=== PATIENT | female | born 1960 | race Two or more races ===

== ENCOUNTER 2017-01-25 16:39 | Observation (INO) | payer MEDICAID ==
[2017-01-25] MEDS ORDERED: CATAPRES TAB 0.1 MG PO PRN (18:40)
[2017-01-25] MEDS ORDERED: APRESOLINE INJ 20 MG VIAL IVP PRN (18:41)
[2017-01-25 19:54] LABS: AMYLASE 95 Units/L (25-115); LIPASE 160 Units/L (73-393)
[2017-01-25 19:59] LABS: ALANINE AMINOTRANSFERASE 23 Units/L (12-78); ALBUMIN 3.6 g/dL (3.4-5.0); ALKALINE PHOSPHATASE 96 Units/L (46-116); ASPARTATE AMINO TRANSFERASE 28 Units/L (15-37); BLOOD UREA NITROGEN 20 mg/dL (7-18); CALCIUM 9.2 mg/dL (8.5-10.1); CARBON DIOXIDE 29.9 mmol/L (21-32); CHLORIDE 107 mmol/L (98-107); COR NA(FOR HYPERGLY) 144 mmol/L (136-145); CREATININE 1.03 mg/dL (0.55-1.02); GLUCOSE 117 mg/dL (65-99); SODIUM 144 mmol/L (136-145); TOTAL PROTEIN 7.4 g/dL (6.4-8.2); eGFR BLACK RACES > 60 (>60); eGFR NON BLACK RACES 59 (>60)
[2017-01-25 20:27] VITALS: BMI 26.6
[2017-01-25] MEDS: ZOSYN VIAL 4.5 GM 4.5 GM in NS 100 ML IV + SPIKE MINIBAG* 100 ML IV SCH (21:39)
[2017-01-25] MEDS: NS 500 ML IV 500 ML IV SCH (21:39)
[2017-01-25] MEDS: LEVAQUIN PREMIX IV 500 MG 500 MG/100 ML BAG IV SCH (21:40)
[2017-01-25] MEDS: NS 100 ML IV 100 ML IV ONE ×2 (21:40→21:41)
--- NOTE | 2017-01-25 22:39 | RAD ---
Chest PA and lateral Indication: Hypertension. Findings: There is cardiomegaly with sternotomy change. There is no pneumothorax or effusion. Lungs are mildly hyperinflated. Impression: Cardiomegaly is COPD without other acute abnormality. No overt edema. Reported By:
--- NOTE | 2017-01-26 03:36 | CT ---
CT abdomen and pelvis with contrast Indication: Diverticulitis Technique: Helical images through the abdomen and pelvis after IV contrast and oral contrast. Alvarado l and sagittal reformats provided. Comparison: No similar studies available. Findings: Limited images through the lung base show chronic lung changes and cardiomegaly. Review of bone windows shows no destructive osseous lesion. Mild facet arthropathy and SI joint DJD noted. Abdomen: Reflux of contrast seen into the hepatic veins. The gallbladder is absent. The liver and sp alexander appear relatively normal. The pancreas and adrenal glands are normal. The stomach and small bow el are normal without obstruction to the flow of contrast which reaches the colon normally. The appe ndix is normal. The colon is normal. Minimal vascular plaque noted. The kidneys are normal without h ydronephrosis. Pelvis: The urinary bladder rectum are normal. Uterus and adnexa are normal. Impression: 1. Cardiomegaly with evidence of cardiac dysfunction reflux of contrast into the hepatic veins. Cons ider echocardiography, followup. 2. Aortic plaque and other incidental findings as above, without other acute abnormality in the abdo men or pelvis. Reported By:
[2017-01-26] MEDS: ZOSYN VIAL 4.5 GM 4.5 GM in NS 100 ML IV + SPIKE MINIBAG* 100 ML IV SCH ×3 (06:16→21:31)
[2017-01-26 06:38] LABS: BASOPHILS # (AUTO) 0.1 X10^3/uL (0.0-0.1); BASOPHILS % (AUTO) 0.8 % (0.2-1.0); EOSINOPHILS # (AUTO) 0.1 x10^3/uL (0.0-0.2); EOSINOPHILS % (AUTO) 1.9 % (0.9-2.9); HEMATOCRIT 45.4 % (36.0-47.0); HEMOGLOBIN 14.9 g/dL (12.0-16.0); LYMPHOCYTES # (AUTO) 2.8 X10^3/uL (1.3-2.9); LYMPHOCYTES % (AUTO) 42.4 % (21.0-51.0); MEAN CORPUSCULAR HEMOGLOBIN 28.4 pg (27.0-34.0); MEAN CORPUSCULAR HGB CONC 32.7 g/dL (33.0-35.0); MEAN CORPUSCULAR VOLUME 86.8 fL (80.0-100.0); MEAN PLATELET VOLUME 9.1 fL (7.4-11.0); MONOCYTES # (AUTO) 0.7 x10^3/uL (0.3-0.8); MONOCYTES % (AUTO) 11.2 % (0.0-13.0); NEUTROPHILS # (AUTO) 2.9 x10^3/uL (2.2-4.8); NEUTROPHILS % (AUTO) 43.7 % (42.0-75.0); PLATELET COUNT 186 X10^3/uL (150.0-450.0); RED BLOOD COUNT 5.23 X10^6/uL (3.5-5.4); RED CELL DISTRIBUTION WIDTH 14.1 % (11.6-16.5); WHITE BLOOD COUNT 6.7 X10^3/uL (3.6-10.0)
[2017-01-26 06:40] LABS: ALANINE AMINOTRANSFERASE 22 Units/L (12-78); ALBUMIN 3.3 g/dL (3.4-5.0); ALKALINE PHOSPHATASE 91 Units/L (46-116); ASPARTATE AMINO TRANSFERASE 21 Units/L (15-37); BLOOD UREA NITROGEN 16 mg/dL (7-18); CALCIUM 9.3 mg/dL (8.5-10.1); CARBON DIOXIDE 24.8 mmol/L (21-32); CHLORIDE 107 mmol/L (98-107); COR CA(FOR HYPOALB) 9.9 mg/dL (8.5-10.1); CREATININE 1.02 mg/dL (0.55-1.02); GLUCOSE 92 mg/dL (65-99); SODIUM 142 mmol/L (136-145); TOTAL PROTEIN 7.1 g/dL (6.4-8.2); eGFR BLACK RACES > 60 (>60); eGFR NON BLACK RACES 60 (>60)
[2017-01-26] MEDS: LEVAQUIN PREMIX IV 500 MG 500 MG/100 ML BAG IV SCH (09:11)
--- NOTE | 2017-01-26 13:12 | DR.H&P ---
H&P - History & Physical for Day of: H&P Date: 01/25/17 - Chief Complaint Chief Complaint: HIGH BP, ABDOMINAL PAIN - Allergies Allergies/Adverse Reactions: Allergies Allergy/AdvReac Type Severity Reaction Status Date / Time No Known Drug Allergy Allergy Verified 06/21/16 23:11 - History of Present Illness History of Present Illness: PATIENT IS A 57-YEAR-OLD FEMALE WHO WAS ADMITTED FROM THE OFFICE AFTER PRESENTING WITH HYPERTENSIVE URGENCY AND ACUTE ABDOMINAL PAIN. pATIENT HAS A HISTORY OF DIVERTICULITIS. pLAN TO ADMIT WITH BY MOUTH cATAPRES AND iv HYDRALAZINE FOR HYPERTENSION TREATMENT, iv HYDRATION AND iv ANTIBIOTICS (ct ABDOMEN AND PELVIS TO RULE OUT ACUTE DIVERTICULITIS - Past Medical History Past Medical History: Coronary Artery Disease, Hypertension - Past Surgical History Surgical History: Angioplasty/Stents, CABG/Valve Surgery, Cholecystectomy - Social History Does patient currently use any type of tobacco product: Yes Have you used tobacco products in the last 12 months: Yes Type of Tobacco Use: Cigarettes Does any household member use tobacco: Yes Alcohol Use: None Drug Use: None - Medications Home Medications: Amlodipine Besylate [NORVASC 10 MG *] 10 mg PO DAILY 01/25/17 [History Confirmed 01/25/17] Aspirin EC [ASPIRIN EC 81 MG *] 81 mg PO DAILY 01/25/17 [History Confirmed 01/25] Nitroglycerin Sublingual [NITROSTAT SUBLING TAB 0.4 MG *] 0.4 mg SL PRN PRN [History Confirmed 01/25/17] Omeprazole [PRILOSEC 20 MG *] 20 mg PO DAILY 01/25/17 [History Confirmed ] - Review of Systems Constitutional: No Symptoms Reported Eyes: No Symptoms Reported ENT: No Symptoms Reported Respiratory: No Symptoms Reported Cardiovascular: No Symptoms Reported Gastrointestinal: Abdominal Pain Genitourinary: No Symptoms Reported Musculoskeletal: No Symptoms Reported Skin: No Symptoms Reported Neurological: No Symptoms Reported - Physical Exam Vital Signs: Temperature 97.9 F Pulse Rate [Right Radial] 53 Respiratory Rate 22 Blood Pressure [Left Arm] 189/80 Blood Pressure 179/96 O2 Sat by Pulse Oximetry 96 Oriented: Normal Eyes: Normal Ear: Normal Nose: Normal Throat: Normal Respiratory: Clear Throughout Cardiovascular: Normal : Normal Auscultation: Bowel Sounds: Normal Palpation: Normal Tenderness: RLQ, LUQ Skin: Normal Musculoskeletal: Normal Psychiatric: Normal Speech Pattern: Clear, Appropriate - Assessment/Plan (1) Hypertensive urgency Status: Acute Plan: ADMIT, PO CATAPRES, IV HYDRALAZINE FOR BP CONTROL. CARDIAC MONITORING, PAIN CONTROL (2) Abdominal pain Qualifiers: Abdominal location: A Status: Acute Plan: ADMISSION LABS, IV ATBX. CT ABD PELVIS
[2017-01-26] MEDS ORDERED: ZESTRIL TAB 20 MG ONE (13:44)
[2017-01-26] MEDS: NORVASC TAB 10 MG PO SCH (13:52)
[2017-01-26] MEDS: LOPRESSOR TAB 50 MG PO SCH ×2 (13:53→21:31)
[2017-01-26] MEDS: ZESTRIL TAB 20 MG PO SCH (13:53)
[2017-01-26 17:23] LABS: BILIRUBIN,URINE NEGATIVE (NEGATIVE); BLOOD/HEMOGLOBIN,URINE 1+ (NEGATIVE); GLUCOSE, URINE NEGATIVE (NEGATIVE); KETONES,URINE NEGATIVE (NEGATIVE); LEUKOCYTE ESTERASE ,URINE NEGATIVE (NEGATIVE); NITRITES,URINE NEGATIVE (NEGATIVE); PROTEIN,URINE NEGATIVE (NEGATIVE); UROBILINOGEN,URINE NORMAL (NORMAL)
[2017-01-26 17:34] LABS: APPEARANCE,URINE SLIGHTLY HAZY (CLEAR); BACTERIA,URINE TRACE /HPF (NEGATIVE); COLOR,URINE YELLOW (YELLOW); SQUAMOUS EPITHELIAL CELL,UR FEW /HPF (NEGATIVE)
[2017-01-26 17:35] LABS: URIC ACID CRYSTALS,URINE MODERATE /HPF (NEGATIVE)
[2017-01-27] MEDS: LOPRESSOR TAB 50 MG PO SCH ×2 (03:17→09:30)
[2017-01-27] MEDS: NS 500 ML IV 500 ML IV SCH (03:18)
[2017-01-27] MEDS: ZOSYN VIAL 4.5 GM 4.5 GM in NS 100 ML IV + SPIKE MINIBAG* 100 ML IV SCH (07:12)
[2017-01-27] MEDS ORDERED: ZESTRIL TAB 20 MG ONE (08:33)
[2017-01-27] MEDS ORDERED: CATAPRES TAB 0.2 MG PO SCH (09:00)
[2017-01-27] MEDS ORDERED: ASPIRIN EC 81 MG PO SCH (09:00)
[2017-01-27] MEDS ORDERED: PriLOSEC PO SCH (09:00)
[2017-01-27] MEDS: LEVAQUIN PREMIX IV 500 MG 500 MG/100 ML BAG IV SCH (09:29)
[2017-01-27] MEDS: ZESTRIL TAB 20 MG PO SCH (09:30)
[2017-01-27] MEDS: NORVASC TAB 10 MG PO SCH (09:30)
[2017-01-27 12:43] VITALS: BP 171/81
--- NOTE | 2017-01-27 13:16 | PCM.PROG ---
Progress Note - Progress Note for Day of Date: 01/26/17 - Subjective Subjective: patient is a 57-year-old female who was admitted one day ago with hypertensive urgency, and lower abdominal pain. Patient had a CT scan to rule out acute diverticulitis which was normal. Patient states pain much improved today blood pressure still elevated will continue when necessary Catapres and hydralazine. Resume home medications. Discussed the need for future cardiac examination if no relief from hypertension. - Past Medical Family Social History Past Med/Fam/Surg Hx: No changes since H&P Allergies: Allergies No Known Drug Allergy Allergy (Verified 06/21/16 23:11) - Review of Systems ROS: No change since H&P - Vital Signs and I&O's Vital Signs: Temperature 98.3 F Pulse Rate [Right Radial] 61 Respiratory Rate 20 Blood Pressure [Right Arm] 171/81 Blood Pressure [Left Arm] 165/85 Blood Pressure 179/96 O2 Sat by Pulse Oximetry 96 Intake and Output: Intake & Output 01/25/17 01/26/17 01/27/17 01/28/17 11:59 11:59 11:59 11:59 Intake Total 225 1790 Balance 225 1790 - Physical Exam Oriented: Normal Eyes: Normal Ear: Normal Nose: Normal Throat: Normal Respiratory: Normal Cardiovascular: Normal : Normal Auscultation: Bowel Sounds: Normal Tenderness: RLQ, LUQ Skin: Normal Musculoskeletal: Normal Psychiatric: Normal Speech Pattern: Clear, Appropriate - Laboratory and Diagnostics Result Diagrams: 01/26/17 04:35 01/26/17 04:35 Labs: Laboratory WBC 6.7 X10^3/uL (3.6-10.0) 01/26/17 04:35 RBC 5.23 X10^6/uL (3.5-5.4) 01/26/17 04:35 Hgb 14.9 g/dL (12.0-16.0) 01/26/17 04:35 Hct 45.4 % (36.0-47.0) 01/26/17 04:35 MCV 86.8 fL (80.0-100.0) 01/26/17 04:35 MCH 28.4 pg (27.0-34.0) 01/26/17 04:35 MCHC 32.7 g/dL (33.0-35.0) L 01/26/17 04:35 RDW 14.1 % (11.6-16.5) 01/26/17 04:35 Plt Count 186 X10^3/uL (150.0-450.0) 01/26/17 04:35 MPV 9.1 fL (7.4-11.0) 01/26/17 04:35 Neut % 43.7 % (42.0-75.0) 01/26/17 04:35 Lymph % 42.4 % (21.0-51.0) 01/26/17 04:35 [place] % 11.2 % (0.0-13.0) 01/26/17 04:35 Eos % 1.9 % (0.9-2.9) 01/26/17 04:35 Baso % 0.8 % (0.2-1.0) 01/26/17 04:35 Neut # 2.9 x10^3/uL (2.2-4.8) 01/26/17 04:35 Lymph # 2.8 X10^3/uL (1.3-2.9) 01/26/17 04:35 [place] # 0.7 x10^3/uL (0.3-0.8) 01/26/17 04:35 Eos # 0.1 x10^3/uL (0.0-0.2) 01/26/17 04:35 Baso # 0.1 X10^3/uL (0.0-0.1) 01/26/17 04:35 Absolute Nucleated RBC 0.2 /100WBC 01/26/17 04:35 Sodium 142 mmol/L (136-145) 01/26/17 04:35 Corrected Sodium TNP 01/26/17 04:35 Potassium 3.8 mmol/L (3.5-5.1) 01/26/17 04:35 Chloride 107 mmol/L (98-107) 01/26/17 04:35 Carbon Dioxide 24.8 mmol/L (21-32) 01/26/17 04:35 BUN 16 mg/dL (7-18) 01/26/17 04:35 Creatinine 1.02 mg/dL (0.55-1.02) 01/26/17 04:35 Est GFR (MDRD) Af Amer > 60 (>60) 01/26/17 04:35 Est GFR (MDRD) Non-Af 60 (>60) 01/26/17 04:35 Glucose 92 mg/dL (65-99) 01/26/17 04:35 Calcium 9.3 mg/dL (8.5-10.1) 01/26/17 04:35 Corrected Calcium 9.9 mg/dL (8.5-10.1) 01/26/17 04:35 Total Bilirubin 0.90 mg/dL (0.2-1.0) 01/26/17 04:35 AST 21 Units/L (15-37) 01/26/17 04:35 ALT 22 Units/L (12-78) 01/26/17 04:35 Alkaline Phosphatase 91 Units/L (46-116) 01/26/17 04:35 Total Protein 7.1 g/dL (6.4-8.2) 01/26/17 04:35 Albumin 3.3 g/dL (3.4-5.0) L 01/26/17 04:35 Globulin 3.8 g/dL (2.5-4.5) 01/26/17 04:35 Albumin/Globulin Ratio 0.9 Ratio (1.1-2.1) L 01/26/17 04:35 Amylase 95 Units/L (25-115) 01/25/17 19:37 Lipase 160 Units/L (73-393) 01/25/17 19:37 Specimen Type Clean catch urine 01/26/17 17:12 Urine Color Yellow (YELLOW) 01/26/17 17:12 Urine Appearance Slightly hazy (CLEAR) 01/26/17 17:12 Urine pH 5.0 (5.0 - 8.0) 01/26/17 17:12 Ur Specific [place] 1.015 (1.000-1.030) 01/26/17 17:12 Urine Protein Negative (NEGATIVE) 01/26/17 17:12 Urine Glucose (UA) Negative (NEGATIVE) 01/26/17 17:12 Urine Ketones Negative (NEGATIVE) 01/26/17 17:12 Urine Occult Blood 1+ (NEGATIVE) 01/26/17 17:12 Urine Nitrite Negative (NEGATIVE) 01/26/17 17:12 Urine Bilirubin Negative (NEGATIVE) 01/26/17 17:12 Urine Urobilinogen Normal (NORMAL) 01/26/17 17:12 Ur Leukocyte Esterase Negative (NEGATIVE) 01/26/17 17:12 Urine RBC 3-4 /HPF (NEGATIVE) 01/26/17 17:12 Urine WBC 0-1 /HPF (NEGATIVE) 01/26/17 17:12 Ur Squamous Epith Cells Few /HPF (NEGATIVE) 01/26/17 17:12 Uric Acid Crystals Moderate /HPF (NEGATIVE) 01/26/17 17:12 Urine Bacteria Trace /HPF (NEGATIVE) 01/26/17 17:12 Ur Culture Indicated? No/not indicated 01/26/17 17:12 - Plan (1) Hypertensive urgency Status: Acute Plan: CONTINUE PO CATAPRES, IV HYDRALAZINE FOR BP CONTROL. CARDIAC MONITORING, PAIN CONTROL (2) Abdominal pain Status: Acute Qualifiers: Abdominal location: A Plan: CT NEGATIVE, ABDOMINAL PAIN IMPROVED
--- NOTE | 2017-01-27 13:20 | PCM.PROG ---
Progress Note - Progress Note for Day of Date: 01/27/17 - Subjective Subjective: patient is a 57-year-old female who was admitted one day ago with hypertensive urgency, continue elevated blood pressure. discussed transfer to [place] for cardiac catheter to rule out coronary artery disease for reason of persistent hypertension. - Past Medical Family Social History Past Med/Fam/Surg Hx: No changes since H&P Allergies: Allergies No Known Drug Allergy Allergy (Verified 06/21/16 23:11) - Review of Systems ROS: No change since H&P - Vital Signs and I&O's Vital Signs: Temperature 98.3 F Pulse Rate [Right Radial] 61 Respiratory Rate 20 Blood Pressure [Right Arm] 171/81 Blood Pressure [Left Arm] 165/85 Blood Pressure 179/96 O2 Sat by Pulse Oximetry 96 Intake and Output: Intake & Output 01/25/17 01/26/17 01/27/17 01/28/17 11:59 11:59 11:59 11:59 Intake Total 225 1790 Balance 225 1790 - Physical Exam Oriented: Normal Eyes: Normal Ear: Normal Nose: Normal Throat: Normal Respiratory: Normal Cardiovascular: Normal : Normal Auscultation: Bowel Sounds: Normal Tenderness: RLQ, LUQ Skin: Normal Musculoskeletal: Normal Psychiatric: Normal Speech Pattern: Clear, Appropriate - Laboratory and Diagnostics Result Diagrams: 01/26/17 04:35 01/26/17 04:35 Labs: Laboratory WBC 6.7 X10^3/uL (3.6-10.0) 01/26/17 04:35 RBC 5.23 X10^6/uL (3.5-5.4) 01/26/17 04:35 Hgb 14.9 g/dL (12.0-16.0) 01/26/17 04:35 Hct 45.4 % (36.0-47.0) 01/26/17 04:35 MCV 86.8 fL (80.0-100.0) 01/26/17 04:35 MCH 28.4 pg (27.0-34.0) 01/26/17 04:35 MCHC 32.7 g/dL (33.0-35.0) L 01/26/17 04:35 RDW 14.1 % (11.6-16.5) 01/26/17 04:35 Plt Count 186 X10^3/uL (150.0-450.0) 01/26/17 04:35 MPV 9.1 fL (7.4-11.0) 01/26/17 04:35 Neut % 43.7 % (42.0-75.0) 01/26/17 04:35 Lymph % 42.4 % (21.0-51.0) 01/26/17 04:35 [place] % 11.2 % (0.0-13.0) 01/26/17 04:35 Eos % 1.9 % (0.9-2.9) 01/26/17 04:35 Baso % 0.8 % (0.2-1.0) 01/26/17 04:35 Neut # 2.9 x10^3/uL (2.2-4.8) 01/26/17 04:35 Lymph # 2.8 X10^3/uL (1.3-2.9) 01/26/17 04:35 [place] # 0.7 x10^3/uL (0.3-0.8) 01/26/17 04:35 Eos # 0.1 x10^3/uL (0.0-0.2) 01/26/17 04:35 Baso # 0.1 X10^3/uL (0.0-0.1) 01/26/17 04:35 Absolute Nucleated RBC 0.2 /100WBC 01/26/17 04:35 Sodium 142 mmol/L (136-145) 01/26/17 04:35 Corrected Sodium TNP 01/26/17 04:35 Potassium 3.8 mmol/L (3.5-5.1) 01/26/17 04:35 Chloride 107 mmol/L (98-107) 01/26/17 04:35 Carbon Dioxide 24.8 mmol/L (21-32) 01/26/17 04:35 BUN 16 mg/dL (7-18) 01/26/17 04:35 Creatinine 1.02 mg/dL (0.55-1.02) 01/26/17 04:35 Est GFR (MDRD) Af Amer > 60 (>60) 01/26/17 04:35 Est GFR (MDRD) Non-Af 60 (>60) 01/26/17 04:35 Glucose 92 mg/dL (65-99) 01/26/17 04:35 Calcium 9.3 mg/dL (8.5-10.1) 01/26/17 04:35 Corrected Calcium 9.9 mg/dL (8.5-10.1) 01/26/17 04:35 Total Bilirubin 0.90 mg/dL (0.2-1.0) 01/26/17 04:35 AST 21 Units/L (15-37) 01/26/17 04:35 ALT 22 Units/L (12-78) 01/26/17 04:35 Alkaline Phosphatase 91 Units/L (46-116) 01/26/17 04:35 Total Protein 7.1 g/dL (6.4-8.2) 01/26/17 04:35 Albumin 3.3 g/dL (3.4-5.0) L 01/26/17 04:35 Globulin 3.8 g/dL (2.5-4.5) 01/26/17 04:35 Albumin/Globulin Ratio 0.9 Ratio (1.1-2.1) L 01/26/17 04:35 Amylase 95 Units/L (25-115) 01/25/17 19:37 Lipase 160 Units/L (73-393) 01/25/17 19:37 Specimen Type Clean catch urine 01/26/17 17:12 Urine Color Yellow (YELLOW) 01/26/17 17:12 Urine Appearance Slightly hazy (CLEAR) 01/26/17 17:12 Urine pH 5.0 (5.0 - 8.0) 01/26/17 17:12 Ur Specific [place] 1.015 (1.000-1.030) 01/26/17 17:12 Urine Protein Negative (NEGATIVE) 01/26/17 17:12 Urine Glucose (UA) Negative (NEGATIVE) 01/26/17 17:12 Urine Ketones Negative (NEGATIVE) 01/26/17 17:12 Urine Occult Blood 1+ (NEGATIVE) 01/26/17 17:12 Urine Nitrite Negative (NEGATIVE) 01/26/17 17:12 Urine Bilirubin Negative (NEGATIVE) 01/26/17 17:12 Urine Urobilinogen Normal (NORMAL) 01/26/17 17:12 Ur Leukocyte Esterase Negative (NEGATIVE) 01/26/17 17:12 Urine RBC 3-4 /HPF (NEGATIVE) 01/26/17 17:12 Urine WBC 0-1 /HPF (NEGATIVE) 01/26/17 17:12 Ur Squamous Epith Cells Few /HPF (NEGATIVE) 01/26/17 17:12 Uric Acid Crystals Moderate /HPF (NEGATIVE) 01/26/17 17:12 Urine Bacteria Trace /HPF (NEGATIVE) 01/26/17 17:12 Ur Culture Indicated? No/not indicated 01/26/17 17:12 - Plan (1) Hypertensive urgency Status: Acute Plan: CONTINUE PO CATAPRES, IV HYDRALAZINE FOR BP CONTROL. CARDIAC MONITORING, PAIN CONTROL (2) Abdominal pain Status: Acute Qualifiers: Abdominal location: A Plan: CT NEGATIVE, ABDOMINAL PAIN IMPROVED (3) CAD (coronary artery disease) Status: Acute Qualifiers: Coronary Disease-Associated Artery/Lesion type: C [place] vs. transplanted heart: N Associated angina: A Plan: plan to transfer to [place] for cardiac catheter
[2017-01-27] MEDS ORDERED: PATIENT'S HOME MEDICATION RESPIRATORY (Atorvastatin Calcium [Lipitor] 80 MG) PO SCH (21:00)
[2017-01-27] MEDS ORDERED: LIPITOR TAB 40 MG PO SCH (21:00)
== END 2017-01-27 13:00 | disposition short-term general hospital (02) ==
LOC: MED/SURG 16:39
PROVIDERS: ADMIT Internal Medicine; ATTEND Internal Medicine
DX: I16.0 Hypertensive urgency (principal); R94.31 Abnormal electrocardiogram [ECG] [EKG]; K57.92 Diverticulitis of intestine, part unspecified, without perforation or abscess without bleeding; I51.7 Cardiomegaly; R10.84 Generalized abdominal pain; I25.10 Atherosclerotic heart disease of native coronary artery without angina pectoris
CPT/HCPCS: 36415; 71020; 74177; 80053; 81001; 82150; 83690; 85025; 93005; 93010; 94760; A4222; G0378; J0360; J1956; J2543